=== PATIENT | female | born 1945 | race Caucasian/White ===

== ENCOUNTER 2019-03-12 00:28 | Emergency (ER) | payer MEDICAID ==
[~2019-03-12] VITALS: Ht 157.5 cm; Wt 83.5 kg
[2019-03-12] MEDS ORDERED: HYDROMORPHONE 1 MG/1 ML DISP.SYRIN IV ONE (01:00)
[2019-03-12] MEDS ORDERED: ONDANSETRON 4 MG/2 ML VIAL IV ONE (01:00)
[2019-03-12] MEDS ORDERED: IV NORMAL SALINE 1000 ML BAG IV ONE (01:00)
[2019-03-12] MEDS ORDERED: HYDROMORPHONE 1 MG/1 ML DISP.SYRIN ONE (01:07)
[2019-03-12] MEDS ORDERED: ONDANSETRON 4 MG/2 ML VIAL ONE (01:08)
[2019-03-12 01:19] LABS: BASOPHILS % (AUTO) 0.4 % (0.0-2.0); EOSINOPHILS % (AUTO) 0.1 % (0.0-7.0); HEMATOCRIT 41.1 % (31.2-41.9); LYMPHOCYTES # (AUTO) 1.2 K/uL (20.0-40.0); LYMPHOCYTES % (AUTO) 9.2 % (20.5-51.5); MEAN CORPUSCULAR HEMOGLOBIN 30.7 uug (24.7-32.8); MEAN CORPUSCULAR HGB CONC 34 g/dL (32.3-35.6); MEAN CORPUSCULAR VOLUME 90.1 fL (75.5-95.3); MONOCYTES # (AUTO) 0.5 K/uL (2.0-10.0); MONOCYTES % (AUTO) 3.7 % (0.0-11.0); NEUTROPHILS % (AUTO) 86.6 % (38.5-71.5); PLATELET COUNT (AUTO) 207 K/uL (179-408); RED BLOOD CELL COUNT(AUTO) 4.56 MIL/uL (3.63-4.92); WHITE BLOOD COUNT (AUTO) 12.6 K/uL (3.8-11.8)
[2019-03-12 01:36] LABS: CREATININE 0.7 mg/dL (0.6-1.3); POTASSIUM 3.7 mmol/L (3.5-5.1)
[2019-03-12 01:41] LABS: BILIRUBIN,DIRECT 0.2 mg/dL (0.0-0.2); BILIRUBIN,TOTAL 0.6 mg/dL (0.2-1.0); TOTAL PROTEIN, SERUM 7.8 g/dL (6.4-8.2)
--- NOTE | 2019-03-12 02:46 | NUR ---
Patient discharged to home in stable conditon. Written and verbal after care instructions given. Patient verbalizes understanding of instructions.Patient ambulated with stable gait. Patient will be taking uber home with daughter.
[2019-03-12 02:47] VITALS: BP 154/85
== END 2019-03-12 02:47 | disposition home or self-care (01) ==
LOC: ER 00:33
DX: T61.91XA Toxic effect of unspecified seafood, accidental (unintentional), initial encounter (principal); Z88.0 Allergy status to penicillin; Y92.89 Other specified places as the place of occurrence of the external cause
CPT/HCPCS: 36415; 80048; 80076; 83690; 85025; 96374; 96375; 99283; J1170; J2405; A4663; J7030

== ENCOUNTER 2019-03-14 15:09 | Inpatient (IN) | payer MEDICAID ==
[~2019-03-14] VITALS: Ht 165.1 cm; Wt 77.1 kg
--- NOTE | 2019-03-14 15:20 | NUR ---
Rahul FRANKLIN at the bedside for MSE.
[2019-03-14 15:42] LABS: BASOPHILS # (AUTO) 0.1 K/uL (0.0-8.0); BASOPHILS % (AUTO) 0.4 % (0.0-2.0); EOSINOPHILS % (AUTO) 0.1 % (0.0-7.0); HEMOGLOBIN 14.5 g/dL (10.9-14.3); LYMPHOCYTES # (AUTO) 1.1 K/uL (20.0-40.0); LYMPHOCYTES % (AUTO) 5.1 % (20.5-51.5); MEAN CORPUSCULAR HEMOGLOBIN 30.6 uug (24.7-32.8); MEAN CORPUSCULAR HGB CONC 34 g/dL (32.3-35.6); MEAN CORPUSCULAR VOLUME 90.7 fL (75.5-95.3); MONOCYTES # (AUTO) 1.5 K/uL (2.0-10.0); MONOCYTES % (AUTO) 7.3 % (0.0-11.0); NEUTROPHILS % (AUTO) 87.1 % (38.5-71.5); PLATELET COUNT (AUTO) 208 K/uL (179-408); RED BLOOD CELL COUNT(AUTO) 4.74 MIL/uL (3.63-4.92); WHITE BLOOD COUNT (AUTO) 20.6 K/uL (3.8-11.8)
[2019-03-14 15:49] LABS: CREATININE 0.9 mg/dL (0.6-1.3)
[2019-03-14 15:55] LABS: BILIRUBIN,DIRECT 0.4 mg/dL (0.0-0.2); BILIRUBIN,TOTAL 1.3 mg/dL (0.2-1.0); TOTAL PROTEIN, SERUM 7.8 g/dL (6.4-8.2)
[2019-03-14] MEDS ORDERED: MORPHINE SULFATE 4 MG/1 ML DISP.SYRIN IV ONE (16:30)
[2019-03-14] MEDS ORDERED: MORPHINE SULFATE 2 MG/1 ML DISP.SYRIN ONE (16:44)
[2019-03-14] MEDS ORDERED: MORPHINE SULFATE 4 MG/1 ML DISP.SYRIN ONE (16:44)
--- NOTE | 2019-03-14 16:59 | NUR ---
Paged Dr Sykes for admin per order.
[2019-03-14] MEDS ORDERED: CEFTRIAXONE 2 G in IV DEXTROSE 5% 100 ML IV ONE (17:00)
[2019-03-14] MEDS ORDERED: METRONIDAZOLE 500 MG/NS 100 ML PIGGYBACK IV ONE (17:00)
[2019-03-14] MEDS ORDERED: METRONIDAZOLE 500 MG/NS 100ML 100 ML IV ONE (17:05)
[2019-03-14] MEDS ORDERED: CEFTRIAXONE 1 G VIAL ONE (17:05)
--- NOTE | 2019-03-14 17:05 | NUR ---
Dr cross spoke to JEM FRANKLIN. Pt needs authorization from health insurance for admit. Awaiting auth.
[2019-03-14] MEDS ORDERED: LOSA50TA39 PO (17:15)
--- NOTE | 2019-03-14 17:35 | NUR ---
Patient is resting comfortably in bed with eyes closed, NAD noted.
--- NOTE | 2019-03-14 19:00 | NUR ---
ADMITTED PATIENT IN MED SURG FLOOR UNDER THE CARE OF DR. SCHNEIDER. PATIENT ALERT ORIENTED, SPEAK SLOV[place], CALLED FAMILY FOR INTERPRETATION. PATIENT HAS NO DIARRHEA NOTED, NO COMPLAIN OF PAIN AT THIS TIME. EXPLAINED TO PATIENT THAT SHE ON NPO AT THIS TIME, NO NAUSEA NO VOMITING NOTED, CONT TO MONITOR.
[2019-03-14] MEDS ORDERED: HYDROCODONE/APAP 5-325MG TABLET PO PRN (19:30)
[2019-03-14] MEDS ORDERED: MORPHINE SULFATE 2 MG/1 ML DISP.SYRIN IV PRN (19:30)
[2019-03-14] MEDS ORDERED: Z GUARD REMEDY PASTE 57 GM TUBE TOP PRN (19:30)
[2019-03-14] MEDS ORDERED: ONDANSETRON 4 MG/2 ML VIAL IV PRN (19:30)
[2019-03-14] MEDS: IV NS 1000 ML 1,000 ML IV PRN (20:01)
[2019-03-14 20:05] VITALS: BP 157/70
[2019-03-14] MEDS ORDERED: LEVOFLOXACIN 500 MG/D5W 500 MG in PREMIXED 1 EACH IV ONE (21:00)
[2019-03-14] MEDS: METRONIDAZOLE 500 MG/NS 100ML 500 MG in PREMIXED 1 EACH IV SCH (22:00)
--- NOTE | 2019-03-14 22:00 | NUR ---
FLAGYL IV NOT GIVEN TOO CLOSE FROM PREVIOUS ADMINISTRATION.
[2019-03-15] MEDS: METRONIDAZOLE 500 MG/NS 100ML 500 MG in PREMIXED 1 EACH IV SCH ×3 (05:09→22:35)
[2019-03-15 05:58] VITALS: BP 133/69
[2019-03-15 06:34] LABS: EOSINOPHILS % (AUTO) 0.1 % (0.0-7.0)
[2019-03-15 06:44] LABS: BASOPHILS # (AUTO) 0.1 K/uL (0.0-8.0); BASOPHILS % (AUTO) 0.3 % (0.0-2.0); CARBON DIOXIDE 25 mmol/L (21-32); CHLORIDE 96 mmol/L (98-107); CREATININE 0.9 mg/dL (0.6-1.3); GLUCOSE 132 mg/dL (74-106); HEMATOCRIT 38.6 % (31.2-41.9); HEMOGLOBIN 12.7 g/dL (10.9-14.3); LYMPHOCYTES # (AUTO) 1.4 K/uL (20.0-40.0); LYMPHOCYTES % (AUTO) 7.3 % (20.5-51.5); MAGNESIUM 1.6 mg/dL (1.8-2.4); MEAN CORPUSCULAR HGB CONC 33 g/dL (32.3-35.6); MEAN CORPUSCULAR VOLUME 91.2 fL (75.5-95.3); MONOCYTES # (AUTO) 1.7 K/uL (2.0-10.0); MONOCYTES % (AUTO) 8.9 % (0.0-11.0); NEUTROPHILS # (AUTO) 15.7 K/uL (1.8-8.9); NEUTROPHILS % (AUTO) 83.4 % (38.5-71.5); PHOSPHOROUS 3.2 mg/dL (2.5-4.9); PLATELET COUNT (AUTO) 185 K/uL (179-408); POTASSIUM 2.9 mmol/L (3.5-5.1); RED BLOOD CELL COUNT(AUTO) 4.24 MIL/uL (3.63-4.92); UREA NITROGEN, BLOOD 17 mg/dL (7-18); WHITE BLOOD COUNT (AUTO) 18.8 K/uL (3.8-11.8)
--- NOTE | 2019-03-15 06:49 | NUR ---
PATIENT ALERT ORIENTED NO SOB NO CHEST PAIN NOTED, PATIENT HAS NO FURTHER COMPLAIN OF PAIN. PATIENT REMAIN NPO AT THIS TIME. PATIENT CONTINENT ASSISTED WITH TOILETING AT THIS TIME. CONT ON ABX ANTIBIOTIC WITH NO ADVERSE REACTION NOTED. CONT TO MONITOR.
--- NOTE | 2019-03-15 08:00 | NUR ---
RECEIVED PT IN BED RESTING COMFORTABLY. PT IS B[place] SPEAKING. NO ACUTE DISTRESS OR SOB NOTED. SAFETY MEASURES IMPLEMENTED. IV SITE INTACT. BED LOCKED AND IN LOW POSITION. WILL CONTINUE TO MONITOR.
[2019-03-15] MEDS: MAGNESIUM SULFATE/D5W 100 ML IV SCH ×2 (08:44→10:13)
[2019-03-15] MEDS: POTASSIUM CHLORIDE 50 ML IV SCH ×4 (11:25→16:40)
[2019-03-15 12:00] VITALS: BP 136/71
[2019-03-15] MEDS: IV NS 1000 ML 1,000 ML IV PRN (14:04)
[2019-03-15] MEDS: POTASSIUM CHLORIDE 40 MEQ in IV NS 1000 ML 1,000 ML IV PRN (16:54)
--- NOTE | 2019-03-15 18:05 | NUR ---
PT RESTING COMFORTABLY IN BED. NO ACUTE DISTRESS OR SOB NOTED. SAFETY MEASURES IMPLEMENTED. BLUE PHONE AT BEDSIDE FOR TRANSLATION. CALL LIGHT WITHIN REACH. BED LOCKED AND IN LOW POSITION. WILL GIVE REPORT TO INCOMING SHIFT ACCORDINGLY.
[2019-03-15 20:53] VITALS: BP 181/71
--- NOTE | 2019-03-15 21:00 | NUR ---
PATIENT HAS ELEVATED TEMP 100.8 AND ELEVATED BP, GIVEN TYLENOL PLUS COOLING MEASURES. PATIENT HAS NO COMPLAIN OF HEADACHES NOR DIZZINESS, WILL CONT TO MONITOR.
[2019-03-15] MEDS: MAGNESIUM HYDROXIDE 30 ML LIQUID UDC PO PRN (21:09)
[2019-03-15] MEDS: ACETAMINOPHEN 325 MG TABLET PO PRN (21:09)
[2019-03-15] MEDS: LEVOFLOXACIN 250MG /D5W 50 ML IV SCH (21:20)
[2019-03-15] MEDS ORDERED: TRAZODONE 50 MG TABLET PO ONE (22:45)
[2019-03-16 00:12] VITALS: BP 111/56
--- NOTE | 2019-03-16 00:21 | NUR ---
PATIENT ALERT ORIENTED, BP STABLE, AND TEMP 99. CONT TO MONITOR.
--- NOTE | 2019-03-16 04:51 | NUR ---
PATIENT ALERT ORIENTED, NO SOB NO CHEST PAIN, V/S STABLE AT THIS TIME. PATIENT HAS NO COMPLAIN OF PAIN NOR DISCOMFORT. PATIENT REMAINS NPO AT THIS TIME. CONT TO MONITOR.
--- NOTE | 2019-03-16 04:53 | NUR ---
PATIENT SLEPT MOST OF THE NIGHT, ASSISTED WITH TOILETING, CONT TO MONITOR.
[2019-03-16] MEDS: METRONIDAZOLE 500 MG/NS 100ML 500 MG in PREMIXED 1 EACH IV SCH ×3 (05:01→22:23)
[2019-03-16 05:12] VITALS: BP 147/68
[2019-03-16 06:25] LABS: BASOPHILS % (AUTO) 0.2 % (0.0-2.0); EOSINOPHILS # (AUTO) 0.1 K/uL (0.0-0.7); EOSINOPHILS % (AUTO) 0.6 % (0.0-7.0); HEMATOCRIT 39.9 % (31.2-41.9); HEMOGLOBIN 13.5 g/dL (10.9-14.3); LYMPHOCYTES # (AUTO) 1.3 K/uL (20.0-40.0); LYMPHOCYTES % (AUTO) 8.4 % (20.5-51.5); MEAN CORPUSCULAR HEMOGLOBIN 30.4 uug (24.7-32.8); MEAN CORPUSCULAR HGB CONC 34 g/dL (32.3-35.6); MEAN CORPUSCULAR VOLUME 89.9 fL (75.5-95.3); MONOCYTES # (AUTO) 1.3 K/uL (2.0-10.0); MONOCYTES % (AUTO) 8.5 % (0.0-11.0); NEUTROPHILS # (AUTO) 12.6 K/uL (1.8-8.9); NEUTROPHILS % (AUTO) 82.3 % (38.5-71.5); PLATELET COUNT (AUTO) 221 K/uL (179-408); RED BLOOD CELL COUNT(AUTO) 4.43 MIL/uL (3.63-4.92); WHITE BLOOD COUNT (AUTO) 15.3 K/uL (3.8-11.8)
[2019-03-16 06:39] LABS: CREATININE 0.8 mg/dL (0.6-1.3); MAGNESIUM 2.2 mg/dL (1.8-2.4); PHOSPHOROUS 2.1 mg/dL (2.5-4.9); POTASSIUM 3.7 mmol/L (3.5-5.1)
--- NOTE | 2019-03-16 06:57 | NUR ---
PATIENT WAS GIVEN MOM LAST NIGHT NO RESULTS YET, ABDOMEN SOFT, AND PATIENT CONT NPO. DR SCHNEIDER IN THE STATION AND NOTIFY HIM PATIENT CONCERN OF CONSTIPATION.
[2019-03-16] MEDS: POTASSIUM CHLORIDE 40 MEQ in IV NS 1000 ML 1,000 ML IV PRN (07:04)
--- NOTE | 2019-03-16 07:30 | NUR ---
Patient calm and comfortable resting in bed; call light within reach; patient will continue to be monitored .
[2019-03-16] MEDS: POTASSIUM PHOSPHATE MM 5 MMOL in IV DEXTROSE 5% 100 ML IV SCH ×4 (09:26→17:53)
[2019-03-16 11:10] VITALS: BP 154/73
[2019-03-16 15:40] VITALS: BP 163/71
--- NOTE | 2019-03-16 19:14 | NUR ---
Patient only Tunisian speaking; patient given all replacement; electrolytes order. Patient otherwise calm and comfortable; Report to oncoming nurse.
--- NOTE | 2019-03-16 19:30 | NUR ---
Received patient in bed, no signs of acute distress noted. No complaints of pain or SOB. Midline on right upper arm intact and heplock on the left hand is intact and patent. Safety measures initiated. Bed is low and locked, call light within reach. Will continue to monitor.
[2019-03-16] MEDS: MAGNESIUM HYDROXIDE 30 ML LIQUID UDC PO PRN (20:29)
[2019-03-16 20:43] VITALS: BP 146/83
[2019-03-16] MEDS: ACETAMINOPHEN 325 MG TABLET PO PRN (20:43)
[2019-03-16] MEDS: LEVOFLOXACIN 250MG /D5W 50 ML IV SCH (20:44)
[2019-03-17] MEDS: POTASSIUM CHLORIDE 40 MEQ in IV NS 1000 ML 1,000 ML IV PRN (04:54)
[2019-03-17 05:02] VITALS: BP 140/70
[2019-03-17] MEDS: METRONIDAZOLE 500 MG/NS 100ML 500 MG in PREMIXED 1 EACH IV SCH ×3 (06:10→21:45)
--- NOTE | 2019-03-17 06:30 | NUR ---
Patient slept well. No distress noted. No complaints of pain or SOB. Was complaining of constipation, gave MoM. Patient was able to have BM. Safety measures given. Will endorse to next shift.
--- NOTE | 2019-03-17 07:30 | NUR ---
Patient calm and comfortable resting in bed; patient only Kittitian speaking ;patient will continue to be monitored.
[2019-03-17 09:31] LABS: BASOPHILS # (AUTO) 0.1 K/uL (0.0-8.0); BASOPHILS % (AUTO) 0.5 % (0.0-2.0); EOSINOPHILS # (AUTO) 0.3 K/uL (0.0-0.7); EOSINOPHILS % (AUTO) 2.1 % (0.0-7.0); HEMATOCRIT 37.2 % (31.2-41.9); HEMOGLOBIN 12.2 g/dL (10.9-14.3); LYMPHOCYTES # (AUTO) 1.4 K/uL (20.0-40.0); LYMPHOCYTES % (AUTO) 11.7 % (20.5-51.5); MEAN CORPUSCULAR HEMOGLOBIN 30.1 uug (24.7-32.8); MEAN CORPUSCULAR HGB CONC 33 g/dL (32.3-35.6); MEAN CORPUSCULAR VOLUME 91.7 fL (75.5-95.3); MONOCYTES # (AUTO) 1.1 K/uL (2.0-10.0); MONOCYTES % (AUTO) 8.8 % (0.0-11.0); NEUTROPHILS # (AUTO) 9.4 K/uL (1.8-8.9); NEUTROPHILS % (AUTO) 76.9 % (38.5-71.5); PLATELET COUNT (AUTO) 232 K/uL (179-408); RED BLOOD CELL COUNT(AUTO) 4.06 MIL/uL (3.63-4.92); WHITE BLOOD COUNT (AUTO) 12.3 K/uL (3.8-11.8)
[2019-03-17 09:40] LABS: CARBON DIOXIDE 26 mmol/L (21-32); CHLORIDE 105 mmol/L (98-107); CREATININE 0.7 mg/dL (0.6-1.3); GLUCOSE 142 mg/dL (74-106); PHOSPHOROUS 2.1 mg/dL (2.5-4.9); POTASSIUM 3.8 mmol/L (3.5-5.1); UREA NITROGEN, BLOOD 11 mg/dL (7-18)
[2019-03-17 11:05] VITALS: BP 169/71
[2019-03-17] MEDS: FUROSEMIDE 40 MG/4 ML VIAL IV SCH ×2 (11:13→20:57)
[2019-03-17 15:33] VITALS: BP 159/54
[2019-03-17] MEDS ORDERED: NEUTRA PHOS PACKET PO SCH (17:15)
--- NOTE | 2019-03-17 19:18 | NUR ---
Patient resting in bed through out shift; patient complained with shortness of breath during shift MD notified and placed for 40 of Lasix iv push and to D/C fluids. orders received and carried out. Daughter notified that mother was resistant to surgery due to her lack of presence ; daughter spoke to mother and both mother and daughter expressed agreement on surgery; Dr. Torre notified that patient is now complaint of surgery ; MD expressed he would later come to visit patient.
--- NOTE | 2019-03-17 19:30 | NUR ---
Received patient in bed. No signs of acute distress noted. No signs of pain or SOB noted. Midline on right upper arm is intact and patent. Heplock on the left hand is intact and patent. Safety measures initiated. Bed is low and locked, call light within reach. Will continue to monitor.
[2019-03-17 20:14] VITALS: BP 137/74
[2019-03-17] MEDS: LEVOFLOXACIN 250MG /D5W 50 ML IV SCH (20:57)
[2019-03-18 05:12] VITALS: BP 153/73
--- NOTE | 2019-03-18 05:59 | NUR ---
Patient slept well. Followed up with Dr. Torre if he was still going to come by and see patient. He said WBC is trending down and he will follow up in AM and that if patient agrees to do surgery, she will have to wait until Monday. Will endorse to morning shift. Patient slept well, no complaints of pain. No distress noted.
[2019-03-18] MEDS: METRONIDAZOLE 500 MG/NS 100ML 500 MG in PREMIXED 1 EACH IV SCH ×3 (06:09→22:12)
[2019-03-18 06:46] LABS: CREATININE 0.7 mg/dL (0.6-1.3); MAGNESIUM 1.7 mg/dL (1.8-2.4); PHOSPHOROUS 3.5 mg/dL (2.5-4.9); POTASSIUM 3.4 mmol/L (3.5-5.1)
[2019-03-18 07:13] LABS: BASOPHILS # (AUTO) 0.1 K/uL (0.0-8.0); BASOPHILS % (AUTO) 0.5 % (0.0-2.0); EOSINOPHILS # (AUTO) 0.3 K/uL (0.0-0.7); EOSINOPHILS % (AUTO) 2.7 % (0.0-7.0); HEMATOCRIT 39.1 % (31.2-41.9); LYMPHOCYTES # (AUTO) 2.4 K/uL (20.0-40.0); LYMPHOCYTES % (AUTO) 20.1 % (20.5-51.5); MEAN CORPUSCULAR HEMOGLOBIN 30.5 uug (24.7-32.8); MEAN CORPUSCULAR HGB CONC 33 g/dL (32.3-35.6); MEAN CORPUSCULAR VOLUME 91.5 fL (75.5-95.3); MONOCYTES # (AUTO) 1.7 K/uL (2.0-10.0); MONOCYTES % (AUTO) 14.2 % (0.0-11.0); NEUTROPHILS # (AUTO) 7.5 K/uL (1.8-8.9); NEUTROPHILS % (AUTO) 62.5 % (38.5-71.5); PLATELET COUNT (AUTO) 267 K/uL (179-408); RED BLOOD CELL COUNT(AUTO) 4.27 MIL/uL (3.63-4.92)
--- NOTE | 2019-03-18 08:00 | NUR ---
RECEIVED PT RESTING COMFORTABLY IN BED. PT DENIES PAIN AT THIS TIME. NO ACUTE DISTRESS OR SOB NOTED AT THIS TIME. PT ALERT AND ORIENTED. PT SPEAKS CITIZEN OF [place] ONLY. INTERNAL REVENUE SERVICE AGENT BLUE PHONE USED AT THE BEDSIDE. CALL LIGHT WITHIN REACH. BED LOCKED AND IN LOW POSITION. WILL CONTINUE TO MONITOR.
[2019-03-18] MEDS ORDERED: FUROSEMIDE 40 MG/4 ML VIAL IV SCH (09:15)
[2019-03-18] MEDS: POTASSIUM CHLORIDE 50 ML IV SCH ×5 (09:23→12:53)
--- NOTE | 2019-03-18 13:00 | NUR ---
PT SEEN BY DR JOAQUIN BRIDGES'S MACHINE OPERATOR Yuki VORA. PT'S DAUGHTER ON SPEAKER PHONE TO TRANSLATE FOR MACHINE OPERATOR. PT TO HAVE SURGERY TOMORROW. PT TO BE PLACED ON NPO AT MIDNIGHT TONIGHT. CURRENTLY NO ACUTE DISTRESS NOTED. NO SOB NOTED. CALL LIGHT WITHIN REACH. BED LOCKED AND IN LOW POSITION. WILL CONTINUE TO MONITOR.
[2019-03-18 16:09] VITALS: BP 139/61
[2019-03-18] MEDS: MAGNESIUM OXIDE 400 MG TABLET PO SCH (16:28)
--- NOTE | 2019-03-18 18:00 | NUR ---
PT RESTING COMFORTABLY IN BED. NO ACUTE DISTRESS NOTED. NO SOB NOTED. CONSENT SIGNED USING TRANSLATING SERVICES. REMOVED L HAND IV DUE TO LEAK. PT TO BE PLACED ON NPO AT MIDNIGHT FOR TOMORROW'S SURGICAL PROCEDURE. CALL LIGHT WITHIN REACH. BED LOCKED AND IN LOW POSITION. WILL GIVE REPORT ACCORDINGLY TO INCOMING SHIFT NURSE.
--- NOTE | 2019-03-18 19:30 | NUR ---
Received patient in bed resting. AO x 4, [place] le[place] speaking only. No SOB noted. NPO after midnight, going for surgery tomorrow at 1pm. Does not complain of pain. Informed consent signed and in the chart. Has a right brachial midline 18G, no fluids. Immediate needs attended, safety precautions in place. Will continue to monitor throughout shift.
[2019-03-18 20:00] VITALS: BP 180/84
--- NOTE | 2019-03-18 20:00 | NUR ---
Patient's blood pressure elevated in the 180's. Dr. Sykes contacted; order given for Catapres 0.1 mg Q6HPRN for SBP > 160.
[2019-03-18] MEDS: CLONIDINE HCL 0.1 MG TABLET PO PRN (20:19)
[2019-03-18] MEDS: LEVOFLOXACIN 500 MG/D5W 500 MG in PREMIXED 1 EACH IV SCH (20:23)
[2019-03-18 21:34] VITALS: BP 150/68
[2019-03-19 00:32] LABS: *BILIRUBIN,URIN NEGATIVE (NEGATIVE); *BLOOD, URINE NEGATIVE (NEGATIVE); *COLOR,URINE AMBER (YELLOW); *KETONES,URINE NEGATIVE (NEGATIVE); LEUKOCYTE ESTERASE ,URINE TRACE (NEGATIVE); NITRITE, URINE POSITIVE (NEGATIVE); PH,URINE 6.5 (5.0-8.0); UGLUCOSE NEGATIVE (NEGATIVE)
[2019-03-19 00:33] LABS: *CLARITY,URINE HAZY (CLEAR)
[2019-03-19 00:34] LABS: BACTERIA,URINE FEW /HPF (NONE SEEN); SQUAMOUS EPITHELIAL CELL,UR FEW /HPF (NONE SEEN)
[2019-03-19 00:35] LABS: MUCUS,URINE FEW /LPF (0-FEW)
[2019-03-19 05:12] VITALS: BP 153/66
[2019-03-19] MEDS: METRONIDAZOLE 500 MG/NS 100ML 500 MG in PREMIXED 1 EACH IV SCH ×3 (05:30→22:03)
[2019-03-19] MEDS: CLONIDINE HCL 0.1 MG TABLET PO PRN (06:51)
[2019-03-19 07:30] LABS: BASOPHILS # (AUTO) 0.1 K/uL (0.0-8.0); BASOPHILS % (AUTO) 1.1 % (0.0-2.0); EOSINOPHILS # (AUTO) 0.4 K/uL (0.0-0.7); EOSINOPHILS % (AUTO) 3.7 % (0.0-7.0); HEMATOCRIT 38.2 % (31.2-41.9); HEMOGLOBIN 12.6 g/dL (10.9-14.3); LYMPHOCYTES # (AUTO) 2.3 K/uL (20.0-40.0); LYMPHOCYTES % (AUTO) 21.6 % (20.5-51.5); MEAN CORPUSCULAR HEMOGLOBIN 30.2 uug (24.7-32.8); MEAN CORPUSCULAR HGB CONC 33 g/dL (32.3-35.6); MEAN CORPUSCULAR VOLUME 91.4 fL (75.5-95.3); MONOCYTES # (AUTO) 1.7 K/uL (2.0-10.0); NEUTROPHILS # (AUTO) 6.1 K/uL (1.8-8.9); NEUTROPHILS % (AUTO) 57.6 % (38.5-71.5); PLATELET COUNT (AUTO) 280 K/uL (179-408); RED BLOOD CELL COUNT(AUTO) 4.18 MIL/uL (3.63-4.92); WHITE BLOOD COUNT (AUTO) 10.5 K/uL (3.8-11.8)
[2019-03-19 07:37] LABS: ALANINE AMINOTRANSFERASE 35 U/L (14-59); ALKALINE PHOSPHATASE 90 U/L (50-136); ASPARTATE AMINOTRANSFERASE 69 U/L (15-37); BILIRUBIN,TOTAL 0.4 mg/dL (0.2-1.0); CARBON DIOXIDE 26 mmol/L (21-32); CHLORIDE 105 mmol/L (98-107); CREATININE 0.7 mg/dL (0.6-1.3); GLUCOSE 121 mg/dL (74-106); MAGNESIUM 1.5 mg/dL (1.8-2.4); PHOSPHOROUS 4.1 mg/dL (2.5-4.9); POTASSIUM 3.6 mmol/L (3.5-5.1); TOTAL PROTEIN, SERUM 6.2 g/dL (6.4-8.2); UREA NITROGEN, BLOOD 12 mg/dL (7-18)
--- NOTE | 2019-03-19 07:49 | NUR ---
Elevated BP in the 170s systolic, given Catapres PRN.
[2019-03-19] MEDS ORDERED: AMLODIPINE 5 MG TABLET PO SCH (09:00)
[2019-03-19] MEDS: MAGNESIUM OXIDE 400 MG TABLET PO SCH ×2 (09:03→18:04)
--- NOTE | 2019-03-19 09:31 | NUR ---
Received pt resting in bed alert oriented x4 slovenian speaking. Pt. has midline in R brachial vein 18 gauge intact patent saline lock. Pt is NPO except meds for laparoscopic cholecytectomy today at 1 PM. consent signed, pre op check list completed, urinalysis sent. Pt.'s BP controlled BP 151/77 HR 72 before AM norvasc given. Will check BP again to see if effective. Safety measures in place. Call light within reach. Will continue to monitor pt.
[2019-03-19 09:58] LABS: BAND % (MANUAL) 1 % (0-10); EOSINOPHILS % (MANUAL) 5 % (0-8); LYMPHOCYTES % (MANUAL) 20 % (20-40); MONOCYTES % (MANUAL) 11 % (2-10); NEUTROPHILS % (MANUAL) 63 % (42-75)
[2019-03-19] MEDS ORDERED: MAGNESIUM SULFATE/D5W 100 ML IV SCH (10:30)
[2019-03-19 11:24] VITALS: BP 154/70
[2019-03-19] MEDS ORDERED: BUPIVACAINE/EPI PF 0.25% 30 ML VIAL ONE (13:04)
[2019-03-19] MEDS ORDERED: LIDOCAINE HCL 1% 20 ML VIAL ONE (13:04)
--- NOTE | 2019-03-19 13:25 | NUR ---
1325 - Upon interviewing for OR procedure, using martiniquais van cdl driver on line (Destiny license# [id number]), patient mentioned shes [employer] and wishes for no blood transfusion. Antonio FRANKLIN and Nicho FRANKLIN, made aware of patient's wishes. Dr Torre explained risk and benefits of the procedure, patient verbalized understanding but wishes to postpone the surgery and follow the recommendations of Dr. Torre. 1350 - patient brought back to room. bed on locked position with two siderails up. Domonique HARRINGTON and charge nurse notified about above event.
[2019-03-19 15:43] VITALS: BP 159/79
--- NOTE | 2019-03-19 18:54 | NUR ---
Pt. resting in bed alert oriented x4 slovenian speaking. Pt. did not have surgery and it will be postponed due to pt. stating she is jehovah witness and will not receive a blood transfusion due to beliefs. Dr. Torre and denise from case management are working out to see if pt. can prepare own blood for elective laparoscopic cholecystectomy. Daughter aware and pt. aware. Will endorse to PM nurse.
[2019-03-19 20:00] VITALS: BP 158/79
[2019-03-19] MEDS: LEVOFLOXACIN 500 MG/D5W 500 MG in PREMIXED 1 EACH IV SCH (20:14)
[2019-03-20 04:52] VITALS: BP 168/79
[2019-03-20] MEDS: CLONIDINE HCL 0.1 MG TABLET PO PRN (04:54)
[2019-03-20] MEDS: METRONIDAZOLE 500 MG/NS 100ML 500 MG in PREMIXED 1 EACH IV SCH (05:19)
--- NOTE | 2019-03-20 05:20 | NUR ---
patient received lying in bed watching TV. no signs of acute distress noted. bp 168/69 and clonidine administered. will f/u with bp. safety and comfort measures provided at all times. all needs met. will continue plan of care and endorse to morning nurse accordingly.
[2019-03-20] MEDS ORDERED: ASPI81TA44 PO (06:41)
[2019-03-20] MEDS: BENAZEPRIL HCL 10 MG TABLET PO SCH ×2 (08:58→09:19)
[2019-03-20] MEDS: MAGNESIUM OXIDE 400 MG TABLET PO SCH ×3 (08:58→09:19)
[2019-03-20] MEDS: AMLODIPINE 10 MG TABLET PO SCH ×2 (08:58→09:18)
[2019-03-20] MEDS ORDERED: AMLODIPINE 5 MG TABLET PO SCH (09:00)
--- NOTE | 2019-03-20 09:19 | NUR ---
Patient faroese speaking, used bias cutter helper [employer] phone to communicate. Patient refused morning medications and states she already took medication for BP and this is actually the best it has been. Explained to patient that these are for maintenance and they are continuous scheduled. She states she will go home today and does not want to take them, refusing despite education. BP 144/69 Addendum: 03/20/19 at 1052 by ALAN COMER RN JIGAR Denis made aware
[2019-03-20 10:59] VITALS: BP 145/69
[2019-03-20] MEDS ORDERED: AMLO10TA7 PO (11:29)
[2019-03-20] MEDS ORDERED: METR-147 PO (11:29)
[2019-03-20] MEDS ORDERED: LEVO500T2 PO (11:29)
--- NOTE | 2019-03-20 12:15 | NUR ---
Discharge instructions reviewed with patient at bedside using interepreting system [employer] # [id number] for macanese speaking. Patient verbalized d/c instruction understanding and medication regimen to follow. Instructed patient on follow up for surgery and she verbalized understanding. Carol Ann caser shoe parts in communication with grandson for appointment, all needs met. IV access and wristband removed. Patient stable, ambulatory on discharge.
[2019-03-20] MEDS ORDERED: METRONIDAZOLE 500 MG TABLET PO SCH (14:00)
[2019-03-20] MEDS ORDERED: LEVOFLOXACIN 500 MG TABLET PO SCH (21:00)
== END 2019-03-20 12:22 | disposition home or self-care (01) | DRG 720 ==
LOC: EDBD → MERGE 15:12 → ER 15:12 → MEDSURG3 18:32
PROVIDERS: ADMIT Internal Medicine; ATTEND Internal Medicine
PROC: 05H933Z Insertion of Infusion Device into Right Brachial Vein, Percutaneous Approach (ICD-10-PCS; principal; 2019-03-15)
DX: A41.9 Sepsis, unspecified organism (principal); K65.9 Peritonitis, unspecified; E44.0 Moderate protein-calorie malnutrition; K80.00 Calculus of gallbladder with acute cholecystitis without obstruction; E86.1 Hypovolemia; N39.0 Urinary tract infection, site not specified; E83.42 Hypomagnesemia; E87.1 Hypo-osmolality and hyponatremia; E87.6 Hypokalemia; Z53.1 Procedure and treatment not carried out because of patient's decision for reasons of belief and group pressure; I10 Essential (primary) hypertension; E66.9 Obesity, unspecified; Z68.28 Body mass index [BMI] 28.0-28.9, adult
CPT/HCPCS: 36415; 36569; 70030-TC; 71045; 83690; 83735; 84100; 85025; 87086; 93005; A4663; G0378; J0696; J1940; J1956; J2270; J3475; J3480; J3490; J7030; J7040; J7050; J7060

== ENCOUNTER 2019-12-19 21:04 | Emergency (ER) | payer MEDICAID ==
[~2019-12-19] VITALS: Ht 167.6 cm; Wt 90.7 kg
[~2019-12-19 21:04] MED LIST: AMLO10TA7 PO; ASPI81TA44 PO; LEVO500T2 PO; LOSA50TA39 PO; METR-147 PO
--- NOTE | 2019-12-19 21:19 | NUR ---
Patient is in Room 1A. Dr Santos is at bedside at this time for MSE, daughter is also at bedside for translation.
[2019-12-19] MEDS ORDERED: ONDANSETRON ODT 4 MG TAB.RAPDIS ONE (21:29)
[2019-12-19] MEDS ORDERED: INDOMETHACIN 25 MG CAPSULE ONE (21:29)
[2019-12-19] MEDS ORDERED: HYDROCODONE/APAP 10-325 MG TABLET ONE (21:29)
[2019-12-19] MEDS ORDERED: COLCHICINE 0.6 MG TABLET ONE (21:29)
[2019-12-19] MEDS ORDERED: HYDROCODONE/APAP 10-325 MG TABLET PO ONE (21:30)
[2019-12-19] MEDS ORDERED: HYDROCODONE/APAP 5-325MG TABLET PO ONE (21:30)
[2019-12-19] MEDS ORDERED: ONDANSETRON ODT 4 MG TAB.RAPDIS SL ONE (21:30)
[2019-12-19] MEDS ORDERED: INDOMETHACIN 25 MG CAPSULE PO ONE (21:30)
[2019-12-19] MEDS ORDERED: COLCHICINE 0.6 MG TABLET PO ONE (21:30)
--- NOTE | 2019-12-19 21:38 | NUR ---
MD cleared patient for discharge. Stated that pain is decreasing and would like to go home after the [place]/Zofran. No nausea/vomiting. Instructed patient not to drive. Written and verbal after care instructions given. Patient verbalizes understanding of instructions. Stressed follow up or return to ER for worsening s/s. Ambulated out of ER, assisted by daughter, refused to be wheeled out. Stable condition.
[2019-12-19 21:45] VITALS: BP 157/73
== END 2019-12-19 21:49 | disposition home or self-care (01) ==
LOC: ER 21:10
DX: M10.9 Gout, unspecified (principal); Z79.899 Other long term (current) drug therapy; Z79.82 Long term (current) use of aspirin; R03.0 Elevated blood-pressure reading, without diagnosis of hypertension
CPT/HCPCS: A4663; Q0162